=== PATIENT | male | born 2000 | race Caucasian/White ===

== ENCOUNTER 2018-03-28 18:06 | Emergency (ER) | payer OTHER ==
[~2018-03-28] VITALS: Ht 170.2 cm; Wt 90.7 kg
[2018-03-28 19:51] VITALS: BP 114/59
== END 2018-03-28 19:52 | disposition home or self-care (01) ==
LOC: ER 18:06
DX: S46.811A Strain of other muscles, fascia and tendons at shoulder and upper arm level, right arm, initial encounter (principal); Z87.828 Personal history of other (healed) physical injury and trauma; F17.210 Nicotine dependence, cigarettes, uncomplicated; Z90.49 Acquired absence of other specified parts of digestive tract; X50.1XXA Overexertion from prolonged static or awkward postures, initial encounter; Y92.89 Other specified places as the place of occurrence of the external cause; Y93.89 Activity, other specified; Y99.8 Other external cause status